=== PATIENT | male | born 1945 | race Caucasian/White ===

== ENCOUNTER → 2021-07-20 | Outpatient (CLI) | payer OTHER ==
[~2021-07-20] MED LIST: ASPIR 8181 M1 PO; CELEBREX 200 M200 M1 PO; CHOLEST OFF PL450 MG PO; ECHINACEA400 MG PO; IRBESARTAN-HCT1 EAC1 PO; JUICE PLUS PO; NIACIN SR 250250 MG PO; OMEPRAZOLE 20 M20 M1 PO; POTASSIUM PO; VITAMIN E400 UNIT PO; VITAMINC500 PO
== END ==
LOC: CAT 08:24
PROVIDERS: ATTEND Family Medicine
DX: Z13.6 Encounter for screening for cardiovascular disorders (principal); I25.10 Atherosclerotic heart disease of native coronary artery without angina pectoris

== ENCOUNTER → 2021-10-27 | Outpatient (CLI) | payer OTHER, MEDICARE | LOC: SJCVCIMAG 07:13 | PROVIDERS: ATTEND Family Medicine | DX: I65.23 Occlusion and stenosis of bilateral carotid arteries (principal) ==